=== PATIENT | female | born 1955 | race Caucasian/White ===

== ENCOUNTER 2020-11-12 12:51 | Outpatient (CLI) | payer MEDICARE ==
[2020-11-12] MEDS ORDERED: LIDOCAINE-MPF 1%, 5ML ONE ×2 (13:17)
== END 2020-11-12 23:59 | disposition home or self-care (01) ==
LOC: RAD 12:51
PROVIDERS: ATTEND Radiology Diagnostic Radiology
DX: E04.1 Nontoxic single thyroid nodule (principal)
CPT/HCPCS: 10005; 88173